=== PATIENT | female | born 1980 | race Caucasian/White ===

== ENCOUNTER 2020-06-23 16:02 | Emergency (ER) | payer OTHER ==
[~2020-06-23] VITALS: Ht 167.6 cm; Wt 61.2 kg
[2020-06-23] MEDS ORDERED: ONDANSETRON ODT8 MG PO (16:28)
[2020-06-23] MEDS ORDERED: MECLIZINE HCL25 MG PO (19:16)
--- NOTE | 2020-06-23 19:52 | EKG ---
[facility] [address] [place], [place] [address] Signed Normal sinus rhythm Normal ECG No previous ECGs available Confirmed by MARIANA RUBIO MD ([id number] on 06/23/2020 7:52:12 PM Electronically Signed By: MARIANA RUBIO MD 06/23/201951 PATIENT NAME: JULIANE BARBOSA Electrocardiogram DATE OF : 80 PHYSICIAN: MARIANA RUBIO MD REPORT #: [id number] REPORT IS CONFIDENTIAL AND NOT TO BE RELEASED WITHOUT AUTHORIZATION
== END 2020-06-23 19:32 | disposition home or self-care (01) ==
LOC: ED 16:02
DX: H83.03 Labyrinthitis, bilateral (principal); J34.89 Other specified disorders of nose and nasal sinuses
CPT/HCPCS: 70450; 80053; 83735; 84443; 84484; 84703; 85025; 93005; 93010; 99284-25